=== PATIENT | male | born 1930 | race Caucasian/White ===

== ENCOUNTER → 2017-11-12 | Outpatient (CLI) | payer OTHER ==
[~2017-11-12] MED LIST: CARDIZEM CD240 MG PO; CLONAZEPAM 1 MG1 M1 PO; COUMADIN 4 MG TA4 M1 PO; DEPO-TESTO200 MG/1 M IM; ELIQUIS5 MG PO; FLECAINIDE ACET50 M1 PO; FLOMAX0.4 MG; KEFLEX500 M1 PO; LASIX 20 MG TAB20 MG PO; LIPITOR 20 MG T20 M1 PO; MEDROLDOSEPACK PO; NORCO 5-325 TA1 EACH PO; PACERONE 200 M200 M1 PO; WELLBUTRIN XL150 MG PO
--- NOTE | 2017-11-25 08:18 | PAINCON ---
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 He has noticed worsening of pain and discomfort over the last 2 to 3 years. He has been having pain across his low back area with pain radiating down into his leg. Notes that the pain is worse when he is working. It can be quite intense at times. Notes that when he leans over, there is worsening of pain with pain radiating down into his leg. Pain is improved with rest. He describes this as periodic, aching, can be sharp as well as stabbing. It is a 1 to 2 at this point, can rise to a level of 10 depending on his level of activity. He denies any back surgery. Denies any recent trauma. Denies any change in bowel or bladder function because of this. He would like to be evaluated with the possibility of having an epidural steroid injection. ALLERGIES: No known drug allergies. MEDICATIONS: Current medications are Eliquis 5 mg b.i.d., Lipitor 20 mg daily, Wellbutrin 150 mg b.i.d., clonazepam 1 mg tablets 2 mg daily for anxiety, diltiazem 240 mg, flecainide 50 mg b.i.d., hydrocodone 5/325 q. 4-6 hours p.r.n. pain, Flomax 0.4 mg q. 24 hours. Medications which have been discontinued are Coumadin, Lasix, amiodarone, Depo-Testosterone. 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 PAST SURGICAL HISTORY: Knee replacements 2011 and 2013, intercostal bleeding 2016, skin tumors removed in 1984, 1994, and 2016. 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 Quit smoking in 1979. REVIEW OF SYSTEMS: GENERAL: Good health. Fatigue and weakness, wears glasses, hearing loss, chronic sinus problems, heart trouble, shortness of breath with walking or lying flat, change in bowel movement, constipation, frequent urination, awakens to urinate at night, loss of memory, confusion, depression, insomnia, joint pain, [place] [address] PAIN MANAGEMENT CONSULTATION Name: VIRI PANIAGUA Room: [facility] Deidre#: [id number] Admission: 11/12/17 Attend Phys: Veronique Wills MD Discharge: Date of : 32 Report #: [id number] joint stiffness and swelling, weakness of joints and muscles, muscle pain and cramps, back pain, glandular/hormone. LABORATORY DATA: No laboratory values are available at the time of our interview. PAIN CLINIC ASSESSMENT: 1. The patient states he is not being treated for osteoarthritis or rheumatoid arthritis. 2. Height 5 feet 10 inches, weight 189 pounds, BMI is 27. 3. Vital signs: Blood pressure 119/74, heart rate 85, respiratory rate 16, room air saturation 98%. 4. Pain score today is 1, it can rise up to a level of 10 with activity. 5. Fall risk: The patient has not fallen. 6. The patient is on a blood thinner. He is taking Eliquis for atrial fibrillation. 7. History of hypertension: The patient is not being treated for hypertension. 8. Opioid therapy greater than 6 weeks: The patient is not on opioid medication for greater than 6 weeks. 9. Risks management tool. 10. Functional assessment tool. 11. Recreational drugs: Denies use of recreational drugs. 12. Tobacco: The patient stopped smoking in the . 13. Alcohol: The patient drinks about one glass of wine per day. PHYSICAL EXAMINATION: GENERAL: The patient is a well-developed, well-nourished 86-year-old. He appears his stated age. He is alert and oriented x 3. Affect is appropriate. Speech is fluent. HEENT: He has bilateral hearing devices in place. Eyes nonicteric. Extraocular eye muscles intact. NECK: Without adenopathy. Good range of motion. EXTREMITIES: Upper extremity muscle strength is judged to be 5/5 for the major muscle groups in the upper extremity without significant sensory changes. HEART: History of atrial fibrillation. LUNGS: Clear to auscultation, somewhat decreased in the bases. MUSCULOSKELETAL: Without significant scoliosis, kyphosis or lordosis. The patient has pain and discomfort in the lower back in the L3-L4 paraspinous muscle area as well as pain in the lower area in the buttocks with pain radiating down into his legs and thighs. This is in the posterior thigh area in the L5-S1 dermatomal distribution in his thighs bilaterally. IMPRESSION: 1. Lumbar radiculopathy at L5-S1 distribution on the left and right L5-S1 dermatomal distribution. 2. History of atrial fibrillation. [address] [place] [address] PAIN MANAGEMENT CONSULTATION Name: PANIAGUAVIRI Room: [facility]#: [id number] Admission: 11/12/17 Attend Phys: Veronique Wills MD Discharge: Date of : 32 Report #: [id number] 3. Skin cancer removal, nose and lip. 4. Enlarged prostate. 5. Insomnia. 6. Anxiety. RECOMMENDATIONS: We discussed treatment options with the patient. Risks and benefits of an epidural steroid injection were discussed. A model was used to indicate the area of probable pathology. The patient is having pain and discomfort, which is radiating down the posterior portion of his legs bilaterally. This is consistent with the L5-S1 distribution. He notes that bending and other activities of daily living can significantly increase his pain level. He has not tried a Medrol Dosepak. We will give him a Medrol Dosepak to take in the interim. He will stop his Eliquis. He will return to the Pain Clinic, at which time if he continues to have pain in spite of the Medrol Dosepak, we will consider an epidural steroid injection. Risks and benefits of the procedure were explained to the patient and his . They include but are not limited to infection, increased muscle soreness, headache, bleeding, worsening of pain, numbness or paralysis. The patient has been given a script for hydrocodone 10/325 one p.o. t.i.d. as needed. He has also been given a Medrol Dosepak to take in the interim. We would like to thank you for letting us participate in his care. We hope he continues to improve. <ELECTRONICALLY SIGNED> By: Veronique Wills MD 11/25/1718 [id number]. Calvin Wlils MD /nt
== END ==
LOC: M.PC 11-10 09:40
DX: M54.16 Radiculopathy, lumbar region (principal); I48.91 Unspecified atrial fibrillation; N40.0 Benign prostatic hyperplasia without lower urinary tract symptoms; G47.00 Insomnia, unspecified; F41.9 Anxiety disorder, unspecified

== ENCOUNTER → 2017-12-10 | Outpatient (CLI) | payer OTHER ==
--- NOTE | 2018-01-06 13:42 | PAINCON ---
[facility] [address] [place] [address] PAIN MANAGEMENT CONSULTATION Name: VIRI PANIAGUA [facility] [id number] Admission: 12/10/17 Attend Phys: Veronique Wills MD Discharge: Date of : 32 Report #: [id number] THIS REPORT FOR: //name// CC: Cosme Wills DATE OF SERVICE: 12/10/2017 FOLLOWUP COMPLAINT: Low back pain with pain radiating down into the leg. 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 As you recall, he has some pain and discomfort, which he has noticed worsening over the last 2-3 years. It involves his lower back with pain radiating down into his right leg. Also, involves the left leg. Notes that the pain becomes quite intense at time. Notes that the pain improves with rest. Increases with levels of activity. Describes some aching, sharp and stabbing discomfort. Rates it as a 2-3 at this juncture. Denies any trauma. No problem with bowel or bladder function. The patient was on Eliquis at the last visit. He has stopped taking his Eliquis and has returned to the pain clinic for an injection at this point. As you recall, he has not had back surgery. ALLERGIES: No known drug allergies. MEDICATIONS: Eliquis 5 mg b.i.d., the patient has stopped taking Eliquis. Lipitor 20 mg. daily, Wellbutrin 150 mg, clonazepam 1 mg tab 2 tabs daily for anxiety, diltiazem 240 mg, flecainide 50 mg b.i.d., hydrocodone 5/325 q. 4-6h. p.r.n., Flomax 0.4 mg q. 24 hours. Medications which have been discontinued in the past were Coumadin, Lasix, amiodarone, Depo-Testosterone. PAIN CLINIC ASSESSMENT: 1. Rheumatoid arthritis/osteoarthritis, patient states he has not been treated for rheumatoid arthritis or osteoarthritis. 2. Height 5 feet 10 inches, weight 184 pounds, BMI is 26.8. 3. Vital signs: Blood pressure 125/55, heart rate 65, respiratory rate 16, room air saturation 95%, temperature 97.8. 4. Pain intensity 10/03. 5. Fall risk. The patient has not fallen in the last 3 months. 6. Blood thinner. The patient has stopped taking his blood thinning medication Eliquis in preparation for the epidural steroid injection. 7. History of hypertension. The patient has not been treated for hypertension. 8. Opioid therapy greater than 6 weeks. [place] [address] PAIN MANAGEMENT CONSULTATION Name: VIRI PANIAGUA [facility] [id number] Admission: 12/10/17 Attend Phys: Veronique Wills MD Discharge: Date of : 32 Report #: [id number] therapy. 9. Risk assessment tool. The patient is not at risk for opioid problems. 10. Functional assessment tool. 11. Tobacco: The patient stopped smoking in . 12. Recreational drug use. Denies use of recreational drugs. 13. Alcohol. The patient drinks about one glass of wine per day. PHYSICAL EXAMINATION: GENERAL: The patient is a well-developed white male, appears his stated age of 86. He is appropriate and oriented x 3. His affect is appropriate. Speech is fluent. HEENT: Normocephalic, atraumatic. Extraocular eye muscles in place. The patient has a hearing aids. Eyes are nonicteric. NECK: Without adenopathy. Good range of motion. EXTREMITIES: Upper extremities judged to be 5/5 for the major muscle groups of the upper extremity with symmetry and without sensory changes. HEART: History of atrial fibrillation. LUNGS: Clear to auscultation without rales or rhonchi. MUSCULOSKELETAL: Without significant scoliosis, kyphosis or lordosis. The patient has pain and discomfort radiating down the lower portion of his back in the L3-L4 paraspinous area as well as pain in the lower portion of his back down into the buttocks and pain radiating down into his thighs and the posterior portion in the L5-S1 dermatomal distribution. States it is problematic bilaterally. Positive straight leg raises. IMPRESSION: 1. Lumbar radiculopathy at L5-S1 on the left and right in the appropriate dermatomal distribution. 2. 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 3. Enlarged prostate. 4. Insomnia. 5. Anxiety. RECOMMENDATIONS: We discussed treatment options with the patient. Risks and benefits of the epidural steroid injection were again reviewed. They include infection, increased muscle soreness, headache, bleeding, no improvement, spinal headache. The patient states he understands and would like to proceed. He has returned to the pain clinic for this purpose. PROCEDURE NOTE: The patient was taken to the procedure area. His back was sterilely prepped with a Betadine solution. He was assisted in getting on the fluoroscopy table. His back was positioned appropriately using fluoroscopy in the anterior, posterior as well as lateral positioning with fluoroscopy. His back was sterilely prepped and 0.25% bupivacaine using a midline approach was used. After appropriate placement in the epidural space. A total of 80 mg Depo-Medrol, 40 mg triamcinolone and 2 mL of 0.25% [place] [address] PAIN MANAGEMENT CONSULTATION Name: VIRI PANIAGUA Room: [facility]#: [id number] Admission: 12/10/17 Attend Phys: Veronique Wills MD Discharge: Date of : 32 Report #: [id number] The patient tolerated the procedure well. There were no complications. Fluoroscopy time of 7 seconds was used. A Band-Aid was placed. There was no bleeding. He remained in the pain clinic for an appropriate amount of time. His pain decreased to 0 at the time of discharge. He will follow up in the future as needed. We would like to thank you for letting us participate in his care. We hope he continues to improve. <ELECTRONICALLY SIGNED> By: Veronique Wills MD 01/06/18 1342 [id number]. Calvin Wills MD /NATACHA
== END | disposition home or self-care (01) ==
LOC: M.PC 04:00
DX: M54.16 Radiculopathy, lumbar region (principal); G89.29 Other chronic pain; N40.0 Benign prostatic hyperplasia without lower urinary tract symptoms; G47.00 Insomnia, unspecified; F41.9 Anxiety disorder, unspecified; Z85.828 Personal history of other malignant neoplasm of skin; Z79.01 Long term (current) use of anticoagulants; Z79.899 Other long term (current) drug therapy; Z79.891 Long term (current) use of opiate analgesic; Z87.01 Personal history of pneumonia (recurrent)

== ENCOUNTER → 2018-01-22 | Outpatient (CLI) | payer OTHER | LOC: M.RAD 09:34 | DX: R06.02 Shortness of breath (principal); R06.00 Dyspnea, unspecified ==

== ENCOUNTER → 2018-07-22 | Outpatient (CLI) | payer OTHER | LOC: M.LAB 12:35 | DX: K59.00 Constipation, unspecified (principal) ==

== ENCOUNTER 2018-10-28 15:00 | Emergency (ER) | payer OTHER ==
[~2018-10-28] VITALS: Ht 177.8 cm; Wt 80.7 kg
[2018-10-28 16:10] VITALS: BP 132/53
== END 2018-10-28 16:10 | disposition home or self-care (01) ==
LOC: M.ERS 15:00
DX: S01.511A Laceration without foreign body of lip, initial encounter (principal); I48.91 Unspecified atrial fibrillation; G47.00 Insomnia, unspecified; N40.0 Benign prostatic hyperplasia without lower urinary tract symptoms; Z85.828 Personal history of other malignant neoplasm of skin; Z87.891 Personal history of nicotine dependence; W22.8XXA Striking against or struck by other objects, initial encounter; Y93.89 Activity, other specified; Y92.89 Other specified places as the place of occurrence of the external cause; Y99.8 Other external cause status

== ENCOUNTER → 2018-11-03 | Outpatient (CLI) | payer OTHER ==
--- NOTE | 2018-11-03 13:48 | 2DMMODE ---
[place] [address] 2 D/M-MODE ECHOCARDIOGRAM Name: VIRI PANIAGUA Room: [facility]#: [id number] Admission: 11/03/18 Attend Phys: Tate Powers, Discharge: Date of : 32 Date of Service: 11/03/18 1348 Report #: [id number] THIS REPORT FOR: //name// APPROVED REPORT Study performed: 11/03/2018 11:01:32 EXAM: Comprehensive 2D, Doppler, and color-flow Echocardiogram Patient Location: Out-Patient BSA: 2.04 HR: 60 bpm BP: 140/80 mmHg Other Information Study Quality: Good Indications Aortic Valve Disease 2D Dimensions IVSd: 13.83 (7-11mm) LVOT Diam: 20.78 (18-24mm) LVDd: 43.56 mm PWd: 13.08 (7-11mm) Ascending Ao: 34.38 (22-36mm) LVDs: 24.60 (25-40mm) Aortic Root: 28.37 mm Volumes Left Atrial Volume (Systole) LA ESV Index: 21.90 mL/m2 Aortic Valve AoV Peak Coy.: 1.11 m/s AO Peak Gr.: 4.89 mmHg LVOT Max P.79 mmHg AO Mean Gr.: 2.31 mmHg LVOT Mean P.60 mmHg LVOT Max V: 0.97 m/s AO V2 VTI: 20.59 cm LVOT Mean V: 0.56 m/s GENOVEVA (VTI): 3.49 cm2 LVOT V1 VTI: 21.21 cm AI [place]: 2.43 m/s2 AI PHT: 484.96 ms Mitral Valve E/A Ratio: 0.63 MV Decel. Time: 296.29 ms MV E Max Coy.: 0.58 m/[place] [address] 2 D/M-MODE ECHOCARDIOGRAM Name: VIRI PANIAGUA Room: [facility]#: [id number] Admission: 11/03/18 Attend Phys: Tate Powers, Discharge: Date of : 32 Date of Service: 11/03/18 1348 Report #: [id number] MV PHT: 85.92 ms MVA (PHT): 2.56 cm2 TDI E/Lateral E': 5.80 E/Medial E': 11.60 Medial E' Coy.: 0.05 m/s Lateral E' Coy.: 0.10 m/s Pulmonary Valve PV Peak Coy.: 0.87 m/s PV Peak Gr.: 3.05 mmHg Tricuspid Valve RAP Estimate: 5.00 mmHg TR Peak Gr.: 22.72 mmHg RVSP: 27.72 mmHg PA Pressure: 27.72 mmHg Left Ventricle The left ventricle is normal size. There is normal LV segmental wall motion. Mild concentric left ventricular hypertrophy. Left ventricular systolic function is normal. The left ventricular ejection fraction is within the normal range. LVEF is 55-60%. Grade I - abnormal relaxation pattern. Right Ventricle The right ventricle is normal size. The right ventricular systolic function is normal. Atria The left atrium size is normal. The right atrium size is normal. Aortic Valve Aortic valve is mildly calcified. Mild to moderate aortic regurgitation. There is no aortic valvular stenosis. Mitral Valve The mitral valve is normal in structure. Trace mitral regurgitation. No evidence of mitral valve stenosis. Tricuspid Valve The tricuspid valve is normal in structure. Mild tricuspid regurgitation. Pulmonic Valve The pulmonary valve is normal in structure. Moderate [place] [address] 2 D/M-MODE ECHOCARDIOGRAM Name: VIRI PANIAGUA Room: [facility]#: [id number] Admission: 11/03/18 Attend Phys: Tate Powers, Discharge: Date of : 32 Date of Service: 11/03/18 1348 Report #: [id number] Great Vessels The aortic root is normal in size. IVC is normal in size and collapses >50% with inspiration. Pericardium There is no pericardial effusion. <Conclusion> The left ventricle is normal size. Mild concentric left ventricular hypertrophy. Left ventricular systolic function is normal. The left ventricular ejection fraction is within the normal range. LVEF is 55-60%. Grade I - abnormal relaxation pattern. The right ventricle is normal size. The left atrium size is normal. Aortic valve is mildly calcified. Mild to moderate aortic regurgitation. There is no aortic valvular stenosis. The mitral valve is normal in structure. The tricuspid valve is normal in structure. Mild tricuspid regurgitation. IVC is normal in size and collapses >50% with inspiration. There is no pericardial effusion. There is normal LV segmental wall motion. <ELECTRONICALLY SIGNED> By: Viri Conteh MD, FACC 11/03/18 1348 1348 1348 Viri Conteh MD, FACC /INF
== END ==
LOC: M.CRD 10:56
DX: I08.2 Rheumatic disorders of both aortic and tricuspid valves (principal); I77.810 Thoracic aortic ectasia

== ENCOUNTER → 2018-11-18 | Outpatient (CLI) | payer OTHER ==
[2018-11-18 10:31] LABS: ABSOLUTE EOSINOPHILS 0.1 thou/uL (0.0-0.7); ABSOLUTE LYMPHOCYTES 0.7 thou/uL (0.8-5.3); ABSOLUTE MONOCYTES 0.5 thou/uL (0.0-1.2); ABSOLUTE NEUTROPHILS 3.3 thou/uL (1.6-8.1); BASOPHILS 0.9 %; EOSINOPHILS 2.8 %; HEMATOCRIT 40.3 % (42.0-52.0); HEMOGLOBIN 13.3 gm/dL (14.0-18.0); LYMPHOCYTES 14.2 %; MCH 29.4 pg (26.0-34.0); MONOCYTES 11.1 %; MPV 9.9 fl. (7.2-11.1); NUCLEATED RBCS 0 /100WBC; PLATELET COUNT* 96 thou/uL (150-400); RBC 4.53 mil/uL (4.50-6.00); WBC 4.7 thou/uL (4.0-11.0)
[2018-11-18 10:48] LABS: ALBUMIN 3.1 g/dL (3.4-5.0); ALKALINE PHOSPHATASE 129 U/L (46-116); ANION GAP 9 mmol/L (7-16); BUN 18 mg/dL (7-18); CALCIUM 8.2 mg/dL (8.5-10.1); CHLORIDE 107 mmol/L (98-107); CHOLESTEROL 109 mg/dL (<200); CO2 28 mmol/L (21-32); CREATININE 1.4 mg/dL (0.6-1.3); GLUCOSE 95 mg/dL (70-99); HDL CHOLESTEROL 31 mg/dL (>40); LDL CHOLESTEROL 69 mg/dL (<100); POTASSIUM 4.1 mmol/L (3.5-5.1); SERUM ASSESSMENT Clear; SGOT 27 U/L (15-37); SGPT 19 U/L (30-65); SODIUM 144 mmol/L (136-145); TC:HDL 3.5 Ratio (Not establshd); TOTAL BILIRUBIN 0.8 mg/dL (<0.1-1.0); TOTAL PROTEIN 6.5 g/dL (6.4-8.2); TRIGLYCERIDE 49 mg/dL (<150); VLDL 10 mg/dL (<40)
[2018-11-18 16:09] LABS: TESTOSTERONE 1176 ng/dL (264-916)
== END ==
LOC: M.RAD 08:52
PROVIDERS: Family Medicine
DX: M51.36 Other intervertebral disc degeneration, lumbar region (principal); M51.87 Other intervertebral disc disorders, lumbosacral region; M47.817 Spondylosis without myelopathy or radiculopathy, lumbosacral region; R53.83 Other fatigue; E78.00 Pure hypercholesterolemia, unspecified

== ENCOUNTER → 2019-02-24 | Outpatient (CLI) | payer OTHER ==
--- NOTE | 2019-02-24 13:28 | CARDNUC ---
[place] [address] CARDIAC NUCLEAR IMAGING REPORT Name: VIRI PANIAGUA Room: [facility]#: [id number] Admission: 02/24/19 Attend Phys: Tate Powers, Discharge: Date of : 32 Date of Service: 02/24/19 1328 Report #: [id number] THIS REPORT FOR: //name// APPROVED REPORT Imaging Protocol: Rest Tc-99m/Stress Tc-99m 1 day Study performed: 02/24/2019 09:39:59 Indication: Chest pain, Dyspnea Patient Location: Out-Patient Stress Tech: Nikki Sapp Stress Nurse: Merissa Archer RN NM Tech:MARLYN Samano Ht: 5 ft 10 in Wt: 172 lbs BSA: 1.96 m2 BMI: 24.67 Medical History Medical History: pat, av insuffiency, bilateral carotid stenosis Medications: eliquis, atorvastatin, cartia xl, flecainde Allergies: nkda Cardiac Risk Factors: age, hyperlipidemia, hypertension, pvd, family hx Previous Cardiac Procedures: none Exercise History: Sedentary Resting Data Rest SPECT myocardial perfusion imaging was performed in supine position 30 minutes following the intravenous injection of 10.3 mCi of Tc-99m Sestamibi. Time of rest injection: 824 Date: 02/24/2019 The images were gated to evaluate regional wall motion and calculate left ventricular ejection fraction. Administration Route: IV Pharmacologic Stress Pharmacologic stress test was performed by injecting Regadenoson 0.4 mg IV push over 10-15 seconds immediately followed by the intravenous injection of 32.7 mCi of Tc-99m Sestamibi. Time of stress injection: 949 Date: 02/24/2019 Administration Route: IV Gated Stress SPECT was performed 40 minutes after stress injection. The images were gated to evaluate regional [place] [address] CARDIAC NUCLEAR IMAGING REPORT Name: VIRI PANIAGUA Room: [facility]#: [id number] Admission: 02/24/19 Attend Phys: Tate Powers, Discharge: Date of : 32 Date of Service: 02/24/19 1328 Report #: [id number] left ventricular ejection fraction. Prone imaging was performed. Stress Test Details Stress Test: Pharmacologic stress testing performed using 0.4 mg of regadenoson per 5 mL given IV over 10 seconds. Reason for pharmacologic stress test: LBBB. HR Max Heart Rate (APMHR): 134 bpm Resting HR: 69 bpm Target HR (85% APMHR): 113 bpm Max HR Achieved: 71 bpm % of APMHR: 52 Recovery HR: 72 bpm BP Resting BP: 143/65 mmHg Max BP: 136/55 mmHg Recovery BP: 134/54 mmHg ECG Resting ECG: sinus rhythm, nonspecific IVCD, T-wave abnormalities. Stress ECG: sinus rhythm, nonspecific IVCD ST Change: Non-ischemic Clinical Reason for Termination: Completed protocol Exercise duration: 0 min sec Exercise capacity: 1 METs Study Quality Study: Good Study Data Post stress, the left ventricular ejection was 58%.. SSS: 17 SRS: 25 SDS: 0 TID = 1.02. Perfusion There is a medium area of moderately reduced uptake in the basal and mid segment of the inferolateral wall which is seen on the stress images as well as the resting images. This area is hypokinetic and is most consistent with [place] [address] CARDIAC NUCLEAR IMAGING REPORT Name: VIRI PANIAGUA Room: [facility]#: [id number] Admission: 02/24/19 Attend Phys: Tate Powers, Discharge: Date of : 32 Date of Service: 02/24/19 1328 Report #: [id number] Hypokinesis of the mid to basal inferolateral wall. Nuclear Conclusion ECG Findings: negative for ischemia Clinical Findings: non-diagnostic Nuclear Findings: positive for nontransmural infarct Exercise Capacity: not assessed Left Ventricular Function: normal There is a nontransmural infarct in the mid to basal inferolateral segment. There is normal LV systolic function, with hypokinesis of the basal inferolateral wall. <ELECTRONICALLY SIGNED> By: Glen Abraham MD 02/24/19 1328 Glen Abraham MD /INF
== END ==
LOC: M.NUC 02-16 12:52
DX: I65.23 Occlusion and stenosis of bilateral carotid arteries (principal); I48.0 Paroxysmal atrial fibrillation

== ENCOUNTER 2019-03-01 07:13 | Inpatient (IN) | payer OTHER ==
[~2019-03-01] VITALS: Ht 177.8 cm; Wt 79.0 kg
--- NOTE | ~2019-03-01 | OP ---
[address] [address] OPERATIVE REPORT Name: VIRI PANIAGUA Room: [address] IN M.R.#: [id number] Admission: 03/01/19 Attend Phys: Betito Ochoa MD Discharge: Date of : 32 Report #: [id number] THIS REPORT FOR: //name// CC: Ann-Marie Ochoa PREOPERATIVE DIAGNOSES: Acute cholecystitis and choledocholithiasis, status post ERCP. POSTOPERATIVE DIAGNOSES: Acute cholecystitis and choledocholithiasis, status post ERCP. OPERATIVE PROCEDURE DONE: Laparoscopic cholecystectomy. OPERATING SURGEON: Pedro Lee MD INDICATIONS FOR PROCEDURE: The patient is an 88-year-old male, who presented with severe features of upper abdominal pain and features of sepsis. Ultrasound evaluation showed features of acute cholecystitis and CT scan showed stones within the common bile duct for which the patient underwent ERCP and the stones were removed. The patient was advised laparoscopic cholecystectomy. DESCRIPTION OF PROCEDURE: After explaining to the patient in detail, an informed consent was obtained. The patient was identified in the preoperative holding area. The patient was transferred to the operating room and was placed in supine position. Sequential compressive devices were placed for DVT prophylaxis. Preoperative antibiotics were given. After induction of anesthesia, the abdomen was prepped and draped in a sterile fashion. Through a right upper quadrant 1 cm incision and using Optiview technique, peritoneal cavity was entered and pneumoperitoneum was created. Thereafter, under direct vision, another 5 mm trocar was placed through a supraumbilical incision and another 5 mm trocar was placed in the epigastrium, and one in the right lateral subcostal region. Upon initial inspection, the gallbladder appeared to be very distended. There were a few adhesions noted on the gallbladder, which were gently taken down using sharp and blunt dissection. The gallbladder was retracted and the peritoneal reflections along the neck of the gallbladder were gently dissected off. The cystic duct was identified and was isolated from the surrounding structures. Cystic artery was identified and isolated from the surrounding structures. Cystic duct was then double clipped proximally and single clip applied distally and was then divided. Cystic artery also was then divided in a similar fashion. The gallbladder was gently dissected off the liver bed using hook electrocautery. Absolute hemostasis was achieved. Thorough saline irrigation was given. The gallbladder was retrieved using an EndoCatch through the lateral most incision. Incisions were then closed with 4-0 Monocryl. The lateral incision was closed with 0 Vicryl for the fascia. Skin was closed with 4-0 Monocryl. For all the incisions, [place] [address] OPERATIVE REPORT Name: VIRI PANIAGUA Room: [address] IN M.R.#: [id number] Admission: 03/01/19 Attend Phys: Betito Ochoa MD Discharge: Date of : 32 Report #: [id number]. The patient was stable at the end of the procedure. The patient was awakened from anesthesia and was transferred to the recovery room in stable condition. ESTIMATED BLOOD LOSS: Minimal. CONDITION OF THE PATIENT: Stable. FLUIDS GIVEN: Per Anesthesia notes. SPECIMEN SENT: Gallbladder. COMPLICATIONS: None. ANESTHESIA: General anesthesia. By: [id number] Kaci Lee MD /nt
[~2019-03-01 07:13] MED LIST changes: -FLOMAX0.4 MG; +FLOMAX0.4 MG PO
[2019-03-01 07:22] VITALS: BP 158/67
[2019-03-01] MEDS ORDERED: AMITRIPTYLINE H50 M3 PO (07:29)
[2019-03-01 07:54] LABS: ABSOLUTE LYMPHOCYTES 1.4 thou/uL (0.8-5.3); ABSOLUTE MONOCYTES 0.9 thou/uL (0.0-1.2); ABSOLUTE NEUTROPHILS 5.7 thou/uL (1.6-8.1); BASOPHILS 0.6 %; EOSINOPHILS 0.3 %; HEMATOCRIT 37.4 % (42.0-52.0); HEMOGLOBIN 12.4 gm/dL (14.0-18.0); LYMPHOCYTES 17.2 %; MCH 28.2 pg (26.0-34.0); MCHC 33.1 g/dL (28.0-37.0); MCV 85.3 fL (80.0-100.0); MONOCYTES 11.1 %; MPV 9.7 fl. (7.2-11.1); NUCLEATED RBCS 0 /100WBC; PLATELET COUNT* 149 thou/uL (150-400); POLYS 70.8 %; RBC 4.38 mil/uL (4.50-6.00); RDW-CV 15.1 % (10.5-14.5)
[2019-03-01 07:59] LABS: ANION GAP 9 mmol/L (7-16); APTT 28.9 Seconds (25.0-31.3); BUN 31 mg/dL (7-18); CALCIUM 8.9 mg/dL (8.5-10.1); CHLORIDE 103 mmol/L (98-107); CO2 27 mmol/L (21-32); CREATININE 1.2 mg/dL (0.6-1.3); GLUCOSE 107 mg/dL (70-99); INR 1.2; SODIUM 139 mmol/L (136-145)
[2019-03-01 08:13] LABS: ALKALINE PHOSPHATASE 142 U/L (46-116); CK-MB MASS 2.3 ng/mL (<0.5-3.6); NT-PRO BRAIN NAT PEPTIDE 599 pg/mL (<300); SGOT 50 U/L (15-37); SGPT 25 U/L (30-65); TOTAL BILIRUBIN 0.7 mg/dL (<0.1-1.0); TOTAL PROTEIN 6.8 g/dL (6.4-8.2); TROPONIN-I LEVEL <0.06 ng/mL (<0.06)
--- NOTE | 2019-03-01 10:53 | EKG ---
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
[2019-03-01 12:24] LABS: URINE BILIRUBIN NEGATIVE (Negative); URINE BLOOD TRACE (Negative); URINE CLARITY SL CLOUDY; URINE COLOR YELLOW; URINE GLUCOSE-RANDOM NEGATIVE (Negative); URINE KETONES TRACE (Negative); URINE LEUKOCYTES-REFLEX 1+ (Negative); URINE NITRITE-REFLEX NEGATIVE (Negative); URINE PROTEIN 1+ (Negative); URINE SPECIFIC GRAVITY 1.015 (1.005-1.030)
[2019-03-01 12:36] LABS: SQUAMOUS 0-3 Few /LPF (0-3); URINE RBC 0-2 Rare /HPF (0-2)
[2019-03-01 12:37] LABS: MUCUS 0-3 Light strn/LPF (None Seen)
[2019-03-01 12:38] LABS: AMORPHOUS PHOSPHATES Moderate /LPF (None Seen); FINE GRANULAR CASTS 0-3 Few /LPF (None Seen)
[2019-03-01 15:35] VITALS: BP 149/58
[2019-03-01 16:00] VITALS: BP 179/70
--- NOTE | 2019-03-01 17:23 | NUR ---
ASSESSMENT COMPLETE. PT SLEEPING SINCE ADMISSION TO UNIT FROM ER. PT GIVEN ATIVAN AND GEODON IN ER. SITER AT BEDSIDE. PIERCE PLACED UPON ADMISSION TO FLOOR. NEURO/GI/SURGERY CONSULTS. PT IS NPO EXCEPT MEDICATIONS. IV FLUIDS INFUSING. BED ALARM ON. CITICAL I&0. PT IS ON ROOM AIR WITH [place] SATS. NSR ON TELE MONITOR, VSS. Q2 TURN. SEE ASSESSMENT AND VITALS FOR OTHER DETAILS. CALL LIGHT WITHIN REACH, WILL CONTINUE PLAN OF CARE.
[2019-03-01 20:00] VITALS: BP 108/69
[2019-03-02] VITALS (9 sets, daily range): BP systolic 108–167; BP diastolic 52–74
--- NOTE | 2019-03-02 05:15 | NUR ---
ASSUMED CARE OF PT AFTER REPORT AT 1930. PT CONFUSED & IMPULSIVE AT TIMES. PT ON RA. PT TRACING SR BBB ON TELE. PT TRIED TO HURT , PULLED OUT IV AND TRYING TO CLIMB OUT OF BED. DR GOMEZ MADE AWARE WITH NEW ORDER. PT WITH 1:1 SITTER. PT WITH PIERCE TO DEPENDENT DRAIN. MAINTAINED ON NPO ORDERED. FOR ERCP TODAY. CALL LIGHT WITHIN REACH.
[2019-03-02 05:31] LABS: HEMATOCRIT 36.7 % (42.0-52.0); MCH 28.1 pg (26.0-34.0); MCHC 32.7 g/dL (28.0-37.0); MCV 86.2 fL (80.0-100.0); MPV 10.2 fl. (7.2-11.1); RBC 4.26 mil/uL (4.50-6.00); RDW-CV 15.2 % (10.5-14.5)
[2019-03-02 05:48] LABS: ALBUMIN 2.6 g/dL (3.4-5.0); CALCIUM 8.1 mg/dL (8.5-10.1); MAGNESIUM 2.2 mg/dL (1.8-2.4); POTASSIUM 3.8 mmol/L (3.5-5.1); TOTAL BILIRUBIN 0.7 mg/dL (<0.1-1.0)
--- NOTE | 2019-03-02 09:28 | NUR ---
ASSUMED CARE OF PT THIS AM AROUND 0715- WATER TAXI CAPTAIN IN PLACE ORDERED, TRACING SR/BBB- UPON ASSESSMENT PT NOTED TO BE BE IN BED SLEEPING, AT SIDE, ALONG WITH SITTER FOR SAFEY/IMPULSIVENESS- PT A&O X1- CONTINENT OF BOWEL, PIERCE IN PLACE D/D CLEAR YELLOW URINE- ASSIST X1 WITH TRANSFERS FOR SAFETY- LCTA, RESP EVEN AND UN-LABORED- VSS, O2 SAT 93% ON RA- ABD SOFT/FL;AT/NON-TENDER, BS X4 QUADS- LAST BM REPORTED 03/01/19- IV NOTED TO RIGHT AC INTACT, IVF INFUSSING PRESCIBED- NPO AT THIS TIME FOR PLANNED ERCP THIS SHIFT- ALL NEEDS MET AT THIS TIME-WCTM
--- NOTE | 2019-03-02 10:14 | NUR ---
Spoke with and dtr in room. Pt is normally A&O. Independent, started using a walker for mobility within the past week. Per , Pt has been "stumbling" at home. No hx of HH or SNF. Pt's [employer] nurse comes out and checks on him. Per , goal is home at dc, no needs anticipated. Following.
--- NOTE | 2019-03-02 12:49 | NUR ---
Nutrition: Pt admitted with AMS/UTI. NPO for procedure. Pt has sitter. Pt was very confused/AMS. He stated he didn't even know where he was right now. Apparently, his stated he has lost 22# recently. Current wt: 160#. Albumin 2.6. H/o afib, BPH. Has gallstones. No nutrition interventions at this time. Pt may benefit from an oral supplement once diet advances. Mild risk. RD will follow wt trends, diet order, po intake, labs, 03/07/19.
--- NOTE | 2019-03-02 19:00 | NUR ---
PT OFF UNIT FROM AROUND 1300 THIS SHIFT TILL AROUND 1830 FOR ERCP- REPORT RECEIVIED AT BEDSIDE UPON RETURNING FROM ERNIE VER[facility]- PT REPORTED TO HAVE HAD 2 STONSE REMOVED- CLEAR LIQUIDS OKAY TO START- HEPARIN ORIGINALLY STARTED PRIOR TO ERCP THIS SHIFT PER ORDERS, BUT HAD NOW BEEN PUT ON HOLD X 48 HOURS- NEURO UNABLE TO SEE PT THIS SHIFT R/T BEING OFF FLOOR FOR ERCP, WILL ASSESS FURTHER GANESH, LABS NOTED- VS UPON RETURNING NOTED AT AT 97.5 21 150/52 69 93% ON RA- PT DENIES ANY C/O PAIN- REQUESTING FOOD, WITH CLEAR LIQUIDS PROVIDED INDICATED- FAMILY SEVEROY AT SIDE- BED ALARM IN PLACE AND WORKING FOR PT SAFETY- ALL NEEDS MET AT THIS TIME-WCTM
[2019-03-03 04:00] VITALS: BP 160/64
[2019-03-03 04:37] LABS: HEMATOCRIT 39.4 % (42.0-52.0); HEMOGLOBIN 12.6 gm/dL (14.0-18.0); MCH 27.6 pg (26.0-34.0); MCHC 32.1 g/dL (28.0-37.0); MPV 9.9 fl. (7.2-11.1); RBC 4.58 mil/uL (4.50-6.00); RDW-CV 15.5 % (10.5-14.5); WBC 8.9 thou/uL (4.0-11.0)
[2019-03-03 04:48] LABS: ALBUMIN 2.4 g/dL (3.4-5.0); CALCIUM 8.2 mg/dL (8.5-10.1); MAGNESIUM 2.5 mg/dL (1.8-2.4); POTASSIUM 4.3 mmol/L (3.5-5.1); TOTAL BILIRUBIN 1.2 mg/dL (<0.1-1.0); TOTAL PROTEIN 6.2 g/dL (6.4-8.2)
--- NOTE | 2019-03-03 06:11 | NUR ---
ASSUMED PATIENT CARE AT 1900. PATIENT ALERT AND ORIENTED TIMES 2-3. HAS NOT NEEDED A SITTER ALL NIGHT. LIKES TO BE UP IN THE CHAIR AT BEDSIDE.
[2019-03-03 08:19] VITALS: BP 170/88
[2019-03-03 11:51] VITALS: BP 147/58
--- NOTE | 2019-03-03 15:48 | CON ---
[address] [address] CONSULTATION Name: VIRI PANIAGUA Room: [address] IN M.R.#: [id number] Admission: 03/01/19 Attend Phys: Betito Ochoa MD Discharge: Date of : 32 Report #: [id number] THIS REPORT FOR: //name// CC: Ann-Marie Ochoa DICTATED BY: Goldie Felix [facility] DATE OF SERVICE: 03/02/2019 Please note, at the time of this dictation, the patient was seen and physically examined by myself. REASON FOR CONSULTATION: Dilated CBD. HISTORY OF PRESENT ILLNESS: This is an 88-year-old male who presented to the Emergency Room with altered mental status changes that he was very combative and hallucinogenic towards his . He was found to have a UTI as well. She has noted that, in the last few months, he has lost about 22 pounds and he was complaining off and on some upper abdominal discomfort. He had a little bit of nausea and occasional vomiting over the last several weeks. She also reports that he has been tiring easily and feeling weak during most of this time. The patient had a colonoscopy back in [address] Ulloa that showed polyps, both tubular adenoma and hyperplastic, and diverticulosis. Otherwise, the rest of his colon was normal. ALLERGIES: No known drug allergies. MEDICATIONS: From home, Wellbutrin, Flomax, flecainide, Cardizem, amitriptyline, and atorvastatin. PAST MEDICAL HISTORY: Atrial fibrillation, skin cancer, pelvic and rib fractures, BPH. PAST SURGICAL HISTORY: Skin cancer excision, otherwise negative. FAMILY HISTORY: Negative for any GI or female cancers. SOCIAL HISTORY: Former smoker, drinks a glass of wine a day. Denies any illegal drug use and is and lives with his . REVIEW OF SYSTEMS: Twelve-point review of systems is essentially negative except what is mentioned in the HPI. PHYSICAL EXAMINATION: [place] [address] CONSULTATION Name: VIRI PANIAGUA Room: [address] IN .R.#: [id number] Admission: 03/01/19 Attend Phys: Betito Ochoa MD Discharge: Date of : 32 Report #: [id number] VITAL SIGNS: Temperature 36.4, pulse 81, respirations 18, blood pressure 141/80. HEART: Regular rate and rhythm. LUNGS: Diminished, but clear. ABDOMEN: Soft, positive bowel sounds in all 4 quadrants, with some slight epigastric to right upper quadrant tenderness noted to palpation. LABORATORY DATA: Hemoglobin is 12, white count is 7, platelets 129. BUN is 22. GFR is 71. Total bilirubin 0.7, alkaline phosphatase 125, ALT 24, AST is 89. CT of the abdomen and pelvis showed a dilated CBD, ultrasound 1.5 cm with sludge and stones noted and an enlarged gallbladder, also noted a UTI. PT is 12, INR is 1.2. IMPRESSION: 1. Common bile duct dilatation. 2. Choledocholithiasis. 3. Abdominal pain. 4. Splenomegaly. 5. Thrombocytopenia. 6. Delirium. 7. Urinary tract infection. 8. History of atrial fibrillation. PLAN: 1. ERCP today with Dr. Chen. 2. Further recommendations to be made once the procedure has been performed. Thank you for allowing us to participate in this patient's care. Please do not hesitate to call with any questions in regard to this consult. Patient noted to have bile duct stones on CT. Will proceed with ERCP and extraction. I agree with assessment and plan noted above by Goldie Felix. <ELECTRONICALLY SIGNED> By: Dread Chen MD 03/03/19 1548 1116 0030Dread Chen MD /nt
[2019-03-03 16:06] VITALS: BP 130/60
--- NOTE | 2019-03-03 16:09 | NUR ---
PT CURRENTLY UP IN BED SIDE RECLINER, AT SIDE- SERVICE ATTENDANT CAFETERIA IN PLACE ORDERED, TRACING SR/BBB/1ST DEGREE- IV TO LEFT FA INTACT, IVF INFUSSING PRESCIBED- IV ABT PRESCIBED THIS SHIFT- ABD CT COMPLETED THIS SHIFT PRESCIBED WITH RESULTS NOTED IN [facility]- PIERCE D/C'D THIS SHIFT ORDERED, PT ABLE TO URINATE SELF WITH NO ISSUES THIS SHIFT- SURGERY PLANNED FOR SAT 03/05/19, PT TO BE NPO AT MIDNIGHT 03/04/19- PT DENIES AND C/O PAIN/DISCOMFORT AT THIS TIME- CALL LIGHT AND PERSONAL BELONGINGS WITH IN REACH- FREQUENT CHECKS IN PLACE R/T SAFETY/NEEDS- ALL NEEDS MET AT THIS TIME-WCTM
[2019-03-03 20:00] VITALS: BP 149/59
[2019-03-04] VITALS: BP 151/89
[2019-03-04 04:00] VITALS: BP 152/55
[2019-03-04 04:53] LABS: HEMATOCRIT 35.8 % (42.0-52.0); HEMOGLOBIN 11.7 gm/dL (14.0-18.0); MCH 28.1 pg (26.0-34.0); MCHC 32.6 g/dL (28.0-37.0); MCV 86.2 fL (80.0-100.0); MPV 9.7 fl. (7.2-11.1); RBC 4.15 mil/uL (4.50-6.00); RDW-CV 15.4 % (10.5-14.5); WBC 6.6 thou/uL (4.0-11.0)
[2019-03-04 04:57] LABS: ALBUMIN 2.5 g/dL (3.4-5.0); CALCIUM 8.1 mg/dL (8.5-10.1); POTASSIUM 3.9 mmol/L (3.5-5.1); TOTAL BILIRUBIN 0.6 mg/dL (<0.1-1.0); TOTAL PROTEIN 5.8 g/dL (6.4-8.2)
--- NOTE | 2019-03-04 05:07 | NUR ---
ASSUMED CARE OF PT AFTE REPOR AT 1930. PT A&OX4. FORGETFUL AT TIMES. VSS. PHYSICAL ASSESSMENT COMPLETED AND CHARED. PT ON RA. PT TRACING SR/BBB ON TELE. PT UP STANDBY TO RESTROOM. PT DENIES ANY PAIN OR DISCOMFORT. PT ABLE TO SLEEP WELL ON BED. CALL LIGHT WITHIN REACH.
[2019-03-04 08:00] VITALS: BP 146/85
--- NOTE | 2019-03-04 11:43 | NUR ---
FIELD SERVICE POULTRY TECHNICIAN SPOKE TO THE PATIENT AND SPOUSE TO DISCUSS DISCHARGE PLANNING AND HH AT D/C. BOTH PATIENT AND SPOUSE INFORM THAT THEY ARE NOT INTERESTED IN HH AT D/C. 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 D/C PRECONSTRUCTION MANAGER INFORMED BOTH PATIENT AND SPOUSE THAT IF THEY CHANGED THEIR MINDS ABOUT HH PRIOR TO D/C THAT CM WOULD BE AVAILABLE TO ASSIST TO ARRANGE IT. PLAN IS FOR THE PATIENT TO D/C HOME TOMORROW. CM WILL REMAIN AVAILABLE TO ASSIST AND FOLLOW NEEDED.
[2019-03-04 15:29] VITALS: BP 108/66
--- NOTE | 2019-03-04 16:45 | NUR ---
ASSUSSMED CARE OF PT APPROX 0730. ASSESSMENT COMPLETED CHARTED. MEDICATIONS GIVEN CHARTED. PT FAMILY AT BEDSIDE. PT AMBULATED IN HALLWAY. PT EDUCATION GIVEN ABOUT MEDICATION. PT VERBALIZED UNDERSTANDING.
--- NOTE | 2019-03-04 17:00 | NUR ---
ASSUMED CARE OF PT AT THIS TIME. AGREE WITH PREVIOUS RN'S DOCUMENTATION. WILL CONTINUE TO MONITOR.
--- NOTE | 2019-03-04 17:00 | NUR ---
I HAVE REVIEWED AND AGREE WTIH THE CHARTING OF ELIDIA Beltran RN ON 03/04/19
[2019-03-04 20:00] VITALS: BP 168/75
[2019-03-05] VITALS (8 sets, daily range): BP systolic 136–170; BP diastolic 55–74
--- NOTE | 2019-03-05 04:41 | NUR ---
ASSUMED CARE OF PT AFTER REPORT AT 1930. PT A&OX4. FORGETFUL. VSS. PHYSICAL ASSESSMENT COMPLETED AND CHARTED. PT ON RA. PT TRACING SR/BBB/1ST DEG ON TELE. PT UPSTANDBY TO RESTROOM. INSTRUCTED PT ON NPO POST MIDNIGHT FOR SURGERY TODAY. COMMUNICATES UNDERSTANDING. DENIES ANY PAIN OR DISCOMFORT. CALL LIGHT WITHIN REACH.
--- NOTE | 2019-03-05 18:21 | NUR ---
ASSUSSMED CARE OF PT APPROX 0730.ASSESSMENT COMPLETED CHARTED. MEDICATIONS GIVEN CHARTED. FAMILY AT BEDSIDE. PT OFF UNIT FOR PROCEDURE APPROX 1000. PT RETURNED TO UNIT APPROX 1320. REPORT RECIEVED FROM NURSE. PTS DIET ADVANCED TOLERATED. PTS IV INFILTRATED. IV DCED AND NEW IV PLACED. PT NEEDS MET.
--- NOTE | 2019-03-05 18:37 | NUR ---
I HAVE REVIEWED AND AGREE WITH THE ASSESMENT,CHARTING AND NOTE OF ELIDIA Beltran RN ON 03/05/19
[2019-03-06] VITALS: BP 170/67
[2019-03-06 04:00] VITALS: BP 118/48
[2019-03-06 04:41] LABS: HEMATOCRIT 36.3 % (42.0-52.0); HEMOGLOBIN 11.9 gm/dL (14.0-18.0); MCH 28.3 pg (26.0-34.0); MCHC 32.9 g/dL (28.0-37.0); MPV 9.8 fl. (7.2-11.1); RBC 4.22 mil/uL (4.50-6.00); RDW-CV 15.7 % (10.5-14.5)
[2019-03-06 04:51] LABS: ALBUMIN 2.4 g/dL (3.4-5.0); CALCIUM 8.3 mg/dL (8.5-10.1); CREATININE 1.1 mg/dL (0.6-1.3); MAGNESIUM 2.1 mg/dL (1.8-2.4); POTASSIUM 4.4 mmol/L (3.5-5.1); TOTAL BILIRUBIN 0.5 mg/dL (<0.1-1.0)
--- NOTE | 2019-03-06 04:56 | NUR ---
ASSUMED CREA OF PT AFTER REPORT AT 1930. PT A7OX4. FORGETFUL. VSS. PHYSICAL ASSESSMENT COMPLETED AND CHARTED. PT ON RA. PT TRACING SR/BBB/1ST DEG ON TELE. PT UPSTANDBY TO RESTROOM. PT DENIES ANY PAIN OR DISCOMFORT. PT ABLE TO SLEEP WELL ON BED. CALL LIGHT WITHIN REACH.
[2019-03-06 08:00] VITALS: BP 169/76
[2019-03-06] MEDS ORDERED: SYNTHROID50 MCG PO (08:19)
[2019-03-06] MEDS ORDERED: ONDANSETRON HCL4 M2 PO (08:19)
[2019-03-06] MEDS ORDERED: AMOX TR-K CLV1 EAC3 PO (08:19)
[2019-03-06] MEDS ORDERED: PROBIOTIC1 EAC1 PO (08:19)
[2019-03-06 10:01] VITALS: BP 169/76
--- NOTE | 2019-03-06 11:29 | NUR ---
ASSUMED PT CARE REPORT RECEIVED FROM NURSE. PT IS AOX3 FORGETFUL ABOUT THE DATE. ON RA. UP TO CHAIR. READY TO GO HOME. DISCHARGE ORDERED. DISCHARGE INSTRUCTION GIVEN TO PT WHO STATED UNDERSTANDING. PT LEFT FLOOR AT 1030 AM ACCOMPANIED BY AND NURSING STAFF ON WHEELCHAIR.
--- NOTE | 2019-03-09 16:06 | PATH ---
[address] [address] PATHOLOGY RPT PROCEDURE Name: VIRI PANIAGUA Room: [address] IN M.R.#: [id number] Admission: 03/01/19 Date of : 32 Discharge: 03/06/19 Report #: [id number] Path Case #: [id number] LCA Accession Number: [id number] . 01 Material submitted: . gallbladder - GALLBLADDER . 01 Clinical history: . Acute cholecystitis . 02 Diagnosis: Gallbladder: - Chronic and acute cholecystitis and cholelithiasis. (EMIL:randy; 03/08/2019) MBR/03/08/2019 . 02 Electronically signed: . Joel Bustamante MD, Pathologist NPI- [id number] . 01 Gross description: . The specimen is received in formalin, labeled "Viri Paniagua, gallbladder". Received is an intact gallbladder measuring 8.8 x 4.3 x 3.2 cm in greatest dimensions displaying a hay-hendrix to pink-hay serosal surface. Opening the specimen reveals a velvety, bile-stained mucosa with a gallbladder wall thickness of 0.1 cm. Calculi are not present, and no masses or lesions are noted grossly. Raschel Knitting Machine Operator sections, to include the proximal margin, are submitted in cassette A1. (CAA; 03/07/2019) QAC/QAC . 02 Pathologist provided ICD-10: K80.12 . 02 CPT . 644664 Specimen Comment: A courtesy copy of this report has been sent to Specimen Comment: [phone], . Specimen Comment: Report sent to / DR ASHRAF Performed at: [id number] [facility] [address], [place], [place] [id number] MD Biju Bourne MD Phone: [phone] Performed at: 02 [facility] [address], [place], [place] [id number] MD Joel Bustamante MD Phone: [phone]
== END 2019-03-06 10:42 | disposition home or self-care (01) | DRG 417 ==
LOC: M.ERS 07:13 → M.2W 11:26 → M.TBA-ER 11:26 → M.2W 16:01
PROVIDERS: Family Medicine; Surgery; ADMIT Internal Medicine
PROC: 0FC98ZZ Extirpation of Matter from Common Bile Duct, Via Natural or Artificial Opening Endoscopic (ICD-10-PCS; principal; 2019-03-02)
PROC: 0FT44ZZ Resection of Gallbladder, Percutaneous Endoscopic Approach (ICD-10-PCS; 2019-03-05)
DX: K80.63 Calculus of gallbladder and bile duct with acute cholecystitis with obstruction (principal); G92 Toxic encephalopathy; N39.0 Urinary tract infection, site not specified; I48.91 Unspecified atrial fibrillation; G47.00 Insomnia, unspecified; R63.4 Abnormal weight loss; R16.1 Splenomegaly, not elsewhere classified; B95.2 Enterococcus as the cause of diseases classified elsewhere; F03.90 Unspecified dementia, unspecified severity, without behavioral disturbance, psychotic disturbance, mood disturbance, and anxiety; N40.1 Benign prostatic hyperplasia with lower urinary tract symptoms; F41.9 Anxiety disorder, unspecified; F32.9 Major depressive disorder, single episode, unspecified; R33.8 Other retention of urine; E03.9 Hypothyroidism, unspecified; R59.0 Localized enlarged lymph nodes; D69.6 Thrombocytopenia, unspecified; R63.0 Anorexia; Z68.25 Body mass index [BMI] 25.0-25.9, adult; Z85.828 Personal history of other malignant neoplasm of skin; Z87.891 Personal history of nicotine dependence; Z79.899 Other long term (current) drug therapy

== ENCOUNTER → 2019-03-17 | Outpatient (CLI) | payer OTHER ==
[~2019-03-17] MED LIST changes: +AMITRIPTYLINE H50 M3 PO; +AMOX TR-K CLV1 EAC3 PO; +ONDANSETRON HCL4 M2 PO; +PROBIOTIC1 EAC1 PO; +SYNTHROID50 MCG PO
[2019-03-17 08:48] LABS: ABSOLUTE BASOPHILS 0.1 thou/uL (0.0-0.2); ABSOLUTE EOSINOPHILS 0.2 thou/uL (0.0-0.7); ABSOLUTE MONOCYTES 0.7 thou/uL (0.0-1.2); ABSOLUTE NEUTROPHILS 5.2 thou/uL (1.6-8.1); BASOPHILS 0.9 %; EOSINOPHILS 2.2 %; HEMATOCRIT 38.5 % (42.0-52.0); HEMOGLOBIN 12.3 gm/dL (14.0-18.0); LYMPHOCYTES 24.5 %; MCH 28.5 pg (26.0-34.0); MCV 89.3 fL (80.0-100.0); MONOCYTES 8.4 %; MPV 9.5 fl. (7.2-11.1); NUCLEATED RBCS 0 /100WBC; PLATELET COUNT* 103 thou/uL (150-400); RBC 4.32 mil/uL (4.50-6.00); WBC 8.1 thou/uL (4.0-11.0)
== END ==
LOC: M.LAB 08:23
PROVIDERS: Family Medicine
DX: D73.9 Disease of spleen, unspecified (principal)

== ENCOUNTER → 2019-03-23 | Day surgery (SDC) | payer OTHER ==
--- NOTE | ~2019-03-23 | OP ---
[address] [address] OPERATIVE REPORT Name: PANIAGUAVIRI Whitaker Room: [facility]#: [id number] Admission: 03/23/19 Attend Phys: Pedro Lee MD Discharge: Date of : 32 Report #: [id number] THIS REPORT FOR: //name// CC: DARRIN Lee MD DICTATED BY: Mitch Pearson DO DATE OF SERVICE: 03/23/2019 Mitch Pearson DO, PGY-3, dictating operative on behalf of Dr. Pedro Lee. PREOPERATIVE DIAGNOSIS: Incisional hernia. POSTOPERATIVE DIAGNOSIS: Incisional hernia. PROCEDURE PERFORMED: Primary repair of an incisional hernia. SURGEON: Pedro Lee MD DIRECTOR OF CUSTOMER ACQUISITION: Mitch Pearson DO, PGY-3 ANESTHESIA: General and local. FINDINGS: A small fat containing incisional hernia of the right lateral previous cholecystectomy port site. ESTIMATED BLOOD LOSS: 2. COMPLICATIONS: None. SPECIMENTS: None. HISTORY OF PRESENT ILLNESS: The patient is a pleasant 88-year-old male who recently underwent laparoscopic cholecystectomy in last couple of weeks, presented for followup exam and was found to have an incisional hernia at his lateral port site. Discussed the need for hernia repair. Risks, complications, and benefits were discussed at length and he agreed to proceed with surgery. DESCRIPTION OF PROCEDURE: After consent was obtained, the patient was taken to the operating room and placed in the supine position. SCDs applied to bilateral lower extremities, safety belt placed across the patient's waist, antibiotics were given for surgical prophylaxis. General anesthesia was administered without any complication. The patient was intubated and then prepped [place] [address] OPERATIVE REPORT Name: VIRI PANIAGUA Room: [facility].#: [id number] Admission: 03/23/19 Attend Phys: Pedro Lee MD Discharge: Date of : 32 Report #: [id number] in the standard sterile fashion. Timeout was performed to confirm the patient and procedure. A 15 blade scalpel was used to make an incision over the previous right lateral port site. Electrocautery was used for hemostasis and to dissect down to the level of the hernia defect. Once the hernia defect was encountered, it was pushed back into the abdomen. There was no developed hernia sac at this time. It was decided to proceed with primary repair of the hernia defect, #1 Prolene was used to close the fascial defect in a running fashion. Once the fascial defect was closed, one stitch of 3-0 Vicryl was used to close the subcutaneous tissue, 4-0 Monocryl was used to close the skin. Dermabond was applied to the incision. The patient was awoken from general anesthesia and transferred to PACU in stable condition. All counts were correct at the end of the case. By: [id number] [id number] marissa Daily
== END | disposition home or self-care (01) ==
LOC: M.SUR 06:22
DX: K43.2 Incisional hernia without obstruction or gangrene (principal); Z87.01 Personal history of pneumonia (recurrent); Z79.899 Other long term (current) drug therapy; Z98.890 Other specified postprocedural states; Z87.19 Personal history of other diseases of the digestive system

== ENCOUNTER 2019-05-11 00:29 | Emergency (ER) | payer OTHER ==
[~2019-05-11] VITALS: Ht 182.9 cm; Wt 83.9 kg
[2019-05-11 01:09] LABS: MCH 30.1 pg (26.0-34.0); MCHC 33.2 g/dL (28.0-37.0); MCV 90.8 fL (80.0-100.0); MPV 8.7 fl. (7.2-11.1); NUCLEATED RBCS 0 /100WBC; PLATELET COUNT* 66 thou/uL (150-400); RBC 3.64 mil/uL (4.50-6.00); RDW-CV 18.2 % (10.5-14.5); WBC 3.3 thou/uL (4.0-11.0)
[2019-05-11 01:18] LABS: INR 1.2; PROTIME 11.9 Seconds (9.20-11.50)
[2019-05-11 01:26] LABS: CALCIUM 8.3 mg/dL (8.5-10.1); CREATININE 1.4 mg/dL (0.6-1.3)
[2019-05-11 01:36] LABS: ALBUMIN 2.3 g/dL (3.4-5.0); TOTAL BILIRUBIN 0.4 mg/dL (<0.1-1.0); TOTAL PROTEIN 4.8 g/dL (6.4-8.2)
[2019-05-11 02:58] LABS: URINE BILIRUBIN NEGATIVE (Negative); URINE BLOOD TRACE (Negative); URINE CLARITY CLEAR; URINE COLOR YELLOW; URINE GLUCOSE-RANDOM NEGATIVE (Negative); URINE KETONES NEGATIVE (Negative); URINE LEUKOCYTES-REFLEX NEGATIVE (Negative); URINE NITRITE-REFLEX NEGATIVE (Negative); URINE PROTEIN NEGATIVE (Negative); URINE SPECIFIC GRAVITY 1.015 (1.005-1.030)
[2019-05-11 03:27] LABS: ABSOLUTE LYMPHOCYTES 0.1 thou/uL (0.8-5.3); ABSOLUTE MONOCYTES 0.2 thou/uL (0.0-1.2); PLATELET ESTIMATE DECREASED
[2019-05-11 03:28] LABS: ANISOCYTOSIS 1+
[2019-05-11 03:50] VITALS: BP 150/54
--- NOTE | 2019-05-11 11:30 | EKG ---
[place] [address] ELECTROCARDIOGRAM REPORT Name: SIVAVIRI Sherman Room[facility] [id number] Admission: 05/11/19 Attend Phys: Discharge: 05/11/19 Date of : 32 Report #: [id number] THIS REPORT FOR: //name// [facility] ED Test Date: 2019-05-11 Test Time: 00:48:38 Pat Name: VIRI PANIAGUA Department: Room: Gender: M People Greeter: JAMES : 1930 Requested By: Stella Pederson Order Number: [id number] MD: Mikhail Hyatt Measurements Intervals [place] Rate: 87 P: 3 KS: 152 QRS: -56 QRSD: 113 T: 30 QT: 360 QTc: 433 Interpretive Statements Sinus rhythm left anterior fasicular block Compared to ECG 03/01/2019 07:44:51 No significant changes Electronically Signed On 05-11-2019 11:30:10 CDT by Mikhail Hyatt [email or web address] <ELECTRONICALLY SIGNED> By: Mikhail Hyatt MD, [facility] 05/11/19 1130 0048 0048 Mikhail Hyatt MD, FACC /EPI
== END 2019-05-11 03:50 | disposition short-term general hospital (02) ==
LOC: M.ERS 00:29
PROVIDERS: Emergency Medicine
DX: S06.5X0A Traumatic subdural hemorrhage without loss of consciousness, initial encounter (principal); R41.82 Altered mental status, unspecified; I48.91 Unspecified atrial fibrillation; Z85.828 Personal history of other malignant neoplasm of skin; Z87.891 Personal history of nicotine dependence; X58.XXXA Exposure to other specified factors, initial encounter; Y93.89 Activity, other specified; Y92.89 Other specified places as the place of occurrence of the external cause; Y99.8 Other external cause status

== ENCOUNTER 2019-12-05 07:05 | Inpatient (IN) | payer OTHER ==
[~2019-12-05] VITALS: Ht 188 cm; Wt 73.5 kg
[~2019-12-05 07:05] MED LIST changes: -AMITRIPTYLINE H50 M3 PO; +AMITRIPTYLINE100 MG PO; -FLECAINIDE ACET50 M1 PO; +TAMBOCOR 100 M100 M1 PO
[2019-12-05 07:10] VITALS: BP 152/63
[2019-12-05] MEDS ORDERED: FLECAINIDE ACE150 MG PO (07:27)
[2019-12-05 07:41] LABS: ABSOLUTE EOSINOPHILS 0.1 thou/uL (0.0-0.7); ABSOLUTE LYMPHOCYTES 0.5 thou/uL (0.8-5.3); ABSOLUTE MONOCYTES 0.7 thou/uL (0.0-1.2); BASOPHILS 0.4 %; HEMATOCRIT 36.9 % (42.0-52.0); LYMPHOCYTES 6.4 %; MCH 28.8 pg (26.0-34.0); MCHC 32.6 g/dL (28.0-37.0); MCV 88.4 fL (80.0-100.0); MONOCYTES 9.2 %; MPV 9.7 fl. (7.2-11.1); NUCLEATED RBCS 0 /100WBC; PLATELET COUNT* 149 thou/uL (150-400); RBC 4.18 mil/uL (4.50-6.00); RDW-CV 16.6 % (10.5-14.5); WBC 7.3 thou/uL (4.0-11.0)
[2019-12-05 07:56] LABS: CALCIUM 8.2 mg/dL (8.5-10.1); CREATININE 1.1 mg/dL (0.6-1.3); POTASSIUM 4.1 mmol/L (3.5-5.1)
[2019-12-05 08:00] LABS: ALBUMIN 3.2 g/dL (3.4-5.0); TOTAL BILIRUBIN 0.5 mg/dL (<0.1-1.0); TOTAL PROTEIN 5.7 g/dL (6.4-8.2)
--- NOTE | 2019-12-05 08:39 | NUR ---
LLOYD NOTIFIED UPON PT RETURN FROM CT. XRAY WITH PT IN ROOM AND WILL CONNECT TO MONITOR UPON THE COMPLETION OF PORTABLE XRAY
[2019-12-05 09:07] LABS: URINE BILIRUBIN NEGATIVE (Negative); URINE BLOOD TRACE (Negative); URINE CLARITY CLEAR; URINE COLOR YELLOW; URINE GLUCOSE-RANDOM NEGATIVE (Negative); URINE KETONES NEGATIVE (Negative); URINE PROTEIN TRACE (Negative); URINE SPECIFIC GRAVITY 1.015 (1.005-1.030)
[2019-12-05 09:09] LABS: URINE LEUKOCYTES-REFLEX 2+ (Negative); URINE NITRITE-REFLEX POSITIVE (Negative)
[2019-12-05 09:23] LABS: BACTERIA-REFLEX >30 Many /HPF (None Seen); CASTS None Seen /LPF (None Seen); CRYSTALS None Seen /LPF (None Seen); MUCUS 0-3 Light strn/LPF (None Seen); SQUAMOUS 0-3 Few /LPF (0-3); URINE RBC 3-10 Few /HPF (0-2)
[2019-12-05 14:24] VITALS: BP 164/66
--- NOTE | 2019-12-05 16:17 | 2DMMODE ---
[place] [address] 2 D/M-MODE ECHOCARDIOGRAM Name: VIRI PANIAGUA Room: [address] IN R#: [id number] Admission: 12/05/19 Attend Phys: Julio Hyatt Discharge: Date of : 32 Date of Service: 12/05/19 1615 Report #: [id number] THIS REPORT FOR: cc: Ann-Marie Daily MD, Elizabeth MD Liston, Michael J. MD [facility] ~ APPROVED REPORT Study performed: 12/05/2019 14:02:56 EXAM: Comprehensive 2D, Doppler, and color-flow Echocardiogram Patient Location: In-Patient Room #: 105 Status: routine BSA: 1.92 HR: 63 bpm BP: 159/62 mmHg Rhythm: NSR Other Information Study Quality: Good Indications CVA/TIA Echo Enhancing Agent Indication: Rule out Shunt Agent(s) / Amount(s) Used: Agitated Saline 10 cc 2D Dimensions IVSd: 10.30 (7-11mm) LVOT Diam: 23.02 (18-24mm) LVDd: 58.80 mm PWd: 9.72 (7-11mm) Ascending Ao: 35.33 (22-36mm) LVDs: 35.22 (25-40mm) Aortic Root: 38.37 mm Volumes Left Atrial Volume (Systole) LA ESV Index: 25.90 mL/m2 Aortic Valve AoV Peak Coy.: 1.31 m/s AO Peak Gr.: 6.84 mmHg LVOT Max P.05 mmHg AO Mean Gr.: 3.47 mmHg LVOT Mean P.30 [place] [address] 2 D/M-MODE ECHOCARDIOGRAM Name: VIRI PANIAGUA Room: [address] IN .R.#: [id number] Admission: 12/05/19 Attend Phys: Julio Hyatt Discharge: Date of : 32 Date of Service: 12/05/19 1615 Report #: [id number] LVOT Max V: 0.87 m/s AO V2 VTI: 26.66 cm LVOT Mean V: 0.52 m/s GENOVEVA (VTI): 3.12 cm2 LVOT V1 VTI: 20.01 cm AI [place]: 2.95 m/s2 AI PHT: 435.83 ms Mitral Valve E/A Ratio: 0.50 MV Decel. Time: 182.33 ms MV E Max Coy.: 0.43 m/s MV PHT: 52.88 ms MVA (PHT): 4.16 cm2 TDI E/Lateral E': 3.91 E/Medial E': 10.75 Medial E' Coy.: 0.04 m/s Lateral E' Coy.: 0.11 m/s Pulmonary Valve PV Peak Coy.: 0.87 m/s PV Peak Gr.: 3.01 mmHg Left Ventricle The left ventricle is normal size. 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 There is normal left ventricular wall thickness. Left ventricular systolic function is normal. LVEF is 55-60%. Grade I - abnormal relaxation pattern. Right Ventricle The right ventricle is normal size. The right ventricular systolic function is normal. Atria The left atrium size is normal. The interatrial septum is intact with no evidence for an atrial septal defect. The right atrium size is normal. Aortic Valve The aortic valve is normal in structure. Moderate aortic regurgitation. There is no aortic valvular stenosis. Mitral Valve The mitral valve is normal in structure. Trace mitral regurgitation. No evidence of mitral valve stenosis. Tricuspid Valve The tricuspid valve is normal in structure[place] [address] 2 D/M-MODE ECHOCARDIOGRAM Name: VIRI PANIAGUA Room: [address] IN .R.#: [id number] Admission: 12/05/19 Attend Phys: Julio Hyatt Discharge: Date of : 34 Date of Service: 12/05/19 1615 Report #: [id number] regurgitation. Unable to assess PA pressure. Pulmonic Valve The pulmonary valve is normal in structure. Mild pulmonic regurgitation. Great Vessels The aortic root is normal in size. IVC is normal in size and collapses >50% with inspiration. Pericardium There is no pericardial effusion. <Conclusion> The left ventricle is normal size. There is normal left ventricular wall thickness. Left ventricular systolic function is normal. LVEF is 55-60%. Grade I - abnormal relaxation pattern. 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 The interatrial septum is intact with no evidence for an atrial septal defect. Moderate aortic regurgitation. Trace mitral regurgitation. Trace tricuspid regurgitation. Unable to assess PA pressure. Mild pulmonic regurgitation. IVC is normal in size and collapses >50% with inspiration. <ELECTRONICALLY SIGNED> By: Tate Powers MD, FACC 12/05/19 1615 14 14 Tate Powers MD, FACC /INF
--- NOTE | 2019-12-05 16:37 | EKG ---
[place] [address] ELECTROCARDIOGRAM REPORT Name: SIVAVIRI Sherman Room: [address] ADM IN M.R.#: [id number] Admission: 12/05/19 Attend Phys: Julio Hyatt Discharge: Date of : 32 Date of Service: 12/05/19 0740 Report #: [id number] THIS REPORT FOR: //name// [facility] ED Test Date: 2019-12-05 Test Time: 07:40:04 Pat Name: VIRI PANIAGUA Department: Room: [facility] Gender: M Insulating Machine Operator: TS : 1930 Requested By: Tye Osullivan Order Number: [id number] MD: Tate Powers Measurements Intervals [place] Rate: 62 P: -11 MN: 227 QRS: -66 QRSD: 144 T: -17 QT: 444 QTc: 451 Interpretive Statements Sinus rhythm Prolonged MN interval Nonspecific IVCD with LAD Left ventricular hypertrophy Anterior Q waves, possibly due to LVH Baseline wander in lead(s) V2 Compared to ECG 05/11/2019 00:48:38 First degree AV block now present Intraventricular conduction delay now present Left ventricular hypertrophy now present Q waves now present Electronically Signed On 12-05-2019 16:35:59 CDT by Tate Powers [email or web address] <ELECTRONICALLY SIGNED> By: Tate Powers MD, [facility] 12/05/19 1635 9 9 Tate Powers MD, [facility] /EPI
--- NOTE | 2019-12-05 16:57 | NUR ---
PT ADMITTED FROM ER. HISTORY AND ASSESSMENT COMPLETE. PT A/O X4 BUT FORGETFUL. PT IS SLEETMUTE WITH BILATERAL HEARING AIDES. ORIENTED TO ROOM, CALL LIGHT, AND REMOTE. BED ALARM ON FOR PT SAFETY.
[2019-12-05 20:00] VITALS: BP 152/64
[2019-12-05 23:49] VITALS: BP 150/45
[2019-12-06 02:07] LABS: GLYCOHEMOGLOBIN (HGB A1C) 5.1 % (4.8-5.6)
[2019-12-06 03:43] VITALS: BP 167/75
--- NOTE | 2019-12-06 05:28 | NUR ---
PT ALERT TO HIMSELF, FORGETFUL, CONFUSED AT TIMES AND TRIED TO GET OUT THE BED FOR SEVERAL TIMES. UP WITH WALKER AND GAITBELT, GAITS UNSTEADY. INCONTINENT OF URINE. PT DENIED PAIN. BED ALARMS ON. CALL LIGHT WITHIN REACH. PT EDUCATED ON FALL RISKS AND CALL LIGHT, BUT DIDNT SEEM TO UNDERSTAND. WILL CONTINUE TO MONITOR.
[2019-12-06 05:31] LABS: ABSOLUTE EOSINOPHILS 0.1 thou/uL (0.0-0.7); ABSOLUTE LYMPHOCYTES 0.5 thou/uL (0.8-5.3); ABSOLUTE MONOCYTES 0.6 thou/uL (0.0-1.2); ABSOLUTE NEUTROPHILS 5.9 thou/uL (1.6-8.1); BASOPHILS 0.2 %; EOSINOPHILS 1.3 %; HEMATOCRIT 38.9 % (42.0-52.0); HEMOGLOBIN 12.8 gm/dL (14.0-18.0); LYMPHOCYTES 7.3 %; MCH 28.7 pg (26.0-34.0); MCHC 32.9 g/dL (28.0-37.0); MCV 87.1 fL (80.0-100.0); MONOCYTES 8.6 %; MPV 9.2 fl. (7.2-11.1); NUCLEATED RBCS 0 /100WBC; PLATELET COUNT* 139 thou/uL (150-400); POLYS 82.6 %; RBC 4.47 mil/uL (4.50-6.00); RDW-CV 16.2 % (10.5-14.5); WBC 7.1 thou/uL (4.0-11.0)
[2019-12-06 05:42] LABS: CALCIUM 8.4 mg/dL (8.5-10.1); POTASSIUM 3.8 mmol/L (3.5-5.1)
[2019-12-06 05:56] LABS: CHOLESTEROL 118 mg/dL (<200); HDL CHOLESTEROL 48 mg/dL (>40); LDL CHOLESTEROL 58 mg/dL (<100); TC:HDL 2.5 Ratio (Not establshd); TRIGLYCERIDE 64 mg/dL (<150); VLDL 13 mg/dL (<40)
[2019-12-06 06:04] LABS: SERUM ASSESSMENT Clear
[2019-12-06 08:00] VITALS: BP 154/79
--- NOTE | 2019-12-06 11:02 | NUR ---
SPOKE TO AFTER SHE SPOKE TO PT ON PHONE. SHE STATES THAT PT IS NOT AT HIS BASELINE AND IS CONFUSED. DISCUSSED PT STATUS AND PLAN OF CARE
[2019-12-06 11:54] VITALS: BP 129/79
--- NOTE | 2019-12-06 15:13 | NUR ---
CM spoke with Pt's via phone. reports that Pt had been doing well over the past few weeks. Pt and spend their [place] in [place] and while there Pt had 2 brain surgeries in August. Pt went to rehab in [place], [place] and they returned home about 1.5 weeks ago, no home d/t covid. states that Pt was out working in the yard on Thursday, on Thursday Pt started complaining of feeling weak. That night, Pt didn't sleep well, woke up to Pt yelling, helped Pt to the restroom, then back to bed, then to the restroom again, during that, Pt had 2 falls. brought Pt to ED with concern that something may be going wrong with Pt's brain d/t the recent surgeries. Pt admitted with UTI and encephalopathy. states that she spoke with her earlier today and states that his mental status is off. tearful d/t not being able to be here with her , but thankful for his care. CM provide emotional support. is hopeful that Pt will be able to return home at dc. Pt has a pending covid test. Following for dc needs.
--- NOTE | 2019-12-06 16:23 | NUR ---
PT RESTING IN BED THROUGHOUT SHIFT. CALLS FOR ASSIST. BED ALARM ON. PT TOLERATING PO WELL. HOURLY ROUNDING PERFORMED WHEN PT NEEDS ASSIST TO MINIMIZE STAFF EXPOSURE TO POSSIBLE COVID 19. SPOKE TO FAMILY AND UPDATED ON PT STATUS.
[2019-12-06 16:59] VITALS: BP 156/50
[2019-12-06 20:15] VITALS: BP 154/66
[2019-12-06 22:10] VITALS: BP 152/74
[2019-12-07 01:30] VITALS: BP 166/65
[2019-12-07 04:00] VITALS: BP 142/66
--- NOTE | 2019-12-07 04:13 | NUR ---
ASSUMED CARE OF PT 12/06/19 AT APPROX 1915. PT A&OX4 WITH PERIODS OF CONFUSION, PT ON ROOM AIR, VSS, SR ON MONITOR. ASSESSMENTS AND HOURLY ROUNDINGS COMPLETE. PT SLEEPING WELL. NO C/O PAIN OR SIGNS OF DISCOMFORT THIS SHIFT. WILL CONTINUE TO MONITOR.
[2019-12-07 07:06] LABS: ABSOLUTE EOSINOPHILS 0.1 thou/uL (0.0-0.7); ABSOLUTE LYMPHOCYTES 0.4 thou/uL (0.8-5.3); ABSOLUTE MONOCYTES 0.7 thou/uL (0.0-1.2); ABSOLUTE NEUTROPHILS 4.7 thou/uL (1.6-8.1); BASOPHILS 0.4 %; EOSINOPHILS 1.5 %; HEMOGLOBIN 13.1 gm/dL (14.0-18.0); LYMPHOCYTES 7.5 %; MCH 29.1 pg (26.0-34.0); MCHC 33.7 g/dL (28.0-37.0); MCV 86.5 fL (80.0-100.0); MPV 8.8 fl. (7.2-11.1); NUCLEATED RBCS 0 /100WBC; PLATELET COUNT* 140 thou/uL (150-400); POLYS 78.6 %; RBC 4.51 mil/uL (4.50-6.00); RDW-CV 16.6 % (10.5-14.5); WBC 5.9 thou/uL (4.0-11.0)
[2019-12-07 07:21] LABS: ALBUMIN 2.9 g/dL (3.4-5.0); CALCIUM 8.2 mg/dL (8.5-10.1); MAGNESIUM 2.1 mg/dL (1.8-2.4); TOTAL BILIRUBIN 0.7 mg/dL (<0.1-1.0)
[2019-12-07 08:44] VITALS: BP 156/67
--- NOTE | 2019-12-07 11:24 | CON ---
[facility] [address] [place] [address] CONSULTATION Name: SIVAVIRI Sherman Room: [address] M.R.#: [id number] Admission: 12/05/19 Attend Phys: Darvin Spring Discharge: Date of : 34 Report #: [id number] THIS REPORT FOR: //name// cc: Ann-Marie Daily MD, Elizabeth MD ~ THIS REPORT FOR: //name// CC: Ann-Marie Hyatt DATE OF SERVICE: 12/06/2019 ATTENDING PHYSICIAN: Barron Acevedo MD REASON FOR EVALUATION: Complicated urinary tract infection, complicated by encephalopathy. HISTORY OF PRESENT ILLNESS: Chart reviewed, patient examined. This is an 88-year-old with fairly significant medical history, has known history of something a chronic lymphoma. He is on chemotherapy; the details are not noted in the chart. He is unable to give specifics. 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 There may be associated residual meningeal thickening. It is noted that he has been more encephalopathic. He has had a number of falls. Again, he is unable to give details of history. It is not clear if he has had any fevers. He denies any chills, shakes or sweats. He states he has not had any pulmonary-related complaints. He has had recent travel to [place], [place]. On evaluation, he was found to have some moderate pyuria. Inflammatory markers were particularly elevated. White count was normal. Imaging was notable. CT of the head did show a question of right posterior mastoid fluid. There is question of acute versus chronic mastoiditis. It is notable he has had a recent history of Enterococcus in his urine. Urine culture now with growth of Escherichia coli. He was started on piperacillin and tazobactam. ALLERGIES: None known. MEDICATIONS: Zosyn, azithromycin, diltiazem CD, atorvastatin, flecainide and tamsulosin. PAST MEDICAL HISTORY: As described above, history of large prostate, atrial fibrillation, multiple brain hemorrhages with bilateral craniotomies, history of lymphoma and some mild encephalopathy. SOCIAL HISTORY: Nonsmoker. Occasional ethanol. No illicit drug use. FAMILY HISTORY: [place] [address] CONSULTATION Name: PANIAGUAVIRI Sherman Room: [address]#: [id number] Admission: 12/05/19 Attend Phys: Darvin Spring Discharge: Date of : 34 Report #: [id number] REVIEW OF SYSTEMS: Somewhat unreliably obtained. The patient is unable to give coherent answers. PHYSICAL EXAMINATION: GENERAL: He appears somewhat chronically ill. He is pleasant. He is cooperative. Speech is somewhat difficult to understand. He states his throat is dry. HEENT: Normocephalic. Extraocular muscles intact. NECK: Supple. LUNGS: Diminished breath sounds. I do not hear any wheezes. HEART: Regular. No apparent murmur. ABDOMEN: Soft, nontender, nondistended. EXTREMITIES: No cyanosis. GENITOURINARY: Deferred. RECTAL: Deferred. LABORATORY DATA: Initial CBC, white count of 7.3, H and H 12.0 and 36.9, platelets of 149, does have a lymphocytopenia of 500. Electrolytes, sodium 142, potassium 4.1, chloride 106, bicarbonate is 32, anion gap of 4, BUN and creatinine 15 and 1.1, glucose of 106. LFTs unremarkable. Albumin 3.2, total protein of 5.7. Troponin serial less than 0.06. Lactic acid 0.9, 1.1. CRP elevated at 20.3. Urinalysis did show moderate to marked pyuria, 16-25 white cells, greater than 30 bacteria. Urine culture with Escherichia coli. Chest x-ray, some chronic changes, there are some basilar changes that suggest atelectasis versus early infiltrate. Blood cultures sterile thus far. ASSESSMENT AND PLAN: Complicated urinary tract infection. The patient has known history of recurrent similar type issues. I think initially would certainly treat as a likely cause contributing to the encephalopathy, for him he said falls that may have been an issue for quite some time. We will await susceptibilities. I think it is reasonable to discontinue azithromycin, worried about drug-drug interactions. We will see how he does clinically. It is notable he is being ruled out for COVID-19 infection as well, that results should be back hopefully later today. We will follow. <ELECTRONICALLY SIGNED> By: Jesus Mehta MD 12/07/19 1124 [id number] [id number] Mehta MD /nt
--- NOTE | 2019-12-07 14:04 | NUR ---
Per , pt doing much better today. Covid pending. Possible dc to home tomorrow. Following.
--- NOTE | 2019-12-07 16:18 | NUR ---
I ASSUMED CARE OF THE PATIENT AT 0700. HE IS ALERT AND ORIENTED X4 AND IS UP WITH ASSIST OF ONE AND A WALKER. BED IS IN THE LOW LOCKED POSITION AND CALL LIGHT IS IN REACH. HOURLY ROUNDING WAS COMPLETED AND PATIENT NEEDS ARE MET. PAIN IS DENIED. BED AND CHAIR ALARMS ARE IN USE. PATIENT WAS BATHED AND LINENS CHANGED. HE NEEDS MEAL SETUP. PATIENT NEEDS TO BE ENCOURAGED TO SLOW DOWN WHEN MOVING, HE JUST GETS IN A HURRY AND BECOMES CARELESS. WAS CONTACTED OF COVID RESULTS AND ROOM TRANSFER. SHE WILL BRING CLOTHES IN THE AM. PATIENT HAS HIS HEARING AID CURTAIN CUTTER AT THE BEDSIDE. REPORT CALLED TO KYLE AND PATIENT TAKEN TO [facility] AT 1600.
[2019-12-07 16:30] VITALS: BP 150/62
--- NOTE | 2019-12-07 18:37 | NUR ---
PT TRANSFERRED FROM [facility]. AOX4 ON RA. VSS SEE CHART. FALL PRECAUTION IN PLACE
[2019-12-07 19:15] VITALS: BP 144/61
--- NOTE | 2019-12-07 22:41 | NUR ---
RECEIVED REPORT AND ASSUMED CARE OF PATIENT AT 1900. VSS. FULL ASSESSMENT COMPLETED CHARTED. BED IN LOW POSITION AND LOCKED. CALL LIGHT AND PERSONAL ITEMS IN REACH. BED ALARM ON. ALL NEEDS MET.
[2019-12-08] VITALS (7 sets, daily range): BP systolic 128–166; BP diastolic 52–68
[2019-12-08 06:15] LABS: CALCIUM 8.1 mg/dL (8.5-10.1); CREATININE 1.2 mg/dL (0.6-1.3); POTASSIUM 3.8 mmol/L (3.5-5.1)
--- NOTE | 2019-12-08 06:34 | NUR ---
NO ACUTE CHANGES. VSS THROUGHOUT SHIFT. ALL ROUNDINGS COMPLETED, ALL NEEDS MET. PT DENIES PAIN THROUGHOUT SHIFT. CALL LIGHT AND PERSONAL ITEMS IN REACH.
--- NOTE | 2019-12-08 14:41 | NUR ---
Per , Pt has UTI. Plan CT of lumbar. Covid negative. Acute rehab consult placed. Following.
--- NOTE | 2019-12-08 16:41 | NUR ---
ASSUMED PT CARE AT 0730, PT SITTING UP IN CHAIR, SATTING 95% ON RA, TRACING SR W/ A 1D AND BBB ON THE SPINNING SUPERVISOR AND HAD NO C/O PAIN OR SHORTNESS OF BREATH. PT WORKED W/ PT TODAY TO WORK ON GAIT, THEY DID NOT CLEAR PT TO DC R/T WEAK GAIT AND HX OF FALLS, INSTEAD ENCOURAGED PT TO MOVE TO REHAB TO INCREASE STRENGTH BEFORE DC TO HOME W/ . PT IS ANXIOUS TO GO HOME, ENCOURAGED REHAB TO PT, PT REFUSES REHAB AND WOULD PREFER TO DO OUT PT. REHAB INSTEAD. CT AND MRI OF SPINE BOTH DONE TODAY, SEE RESULTS. PT IS ALSO STILL AWAITING SENSITIVITIES FROM URINE CULTURE TO COME BACK BEFORE BEING ABLE TO DC. PT GOAL IS TO CONTINUE TO WORK TOWARDS DC AND ALSO REMAIN FREE FROM FALLS AND INCREASE ACTIVITY. AM ASSESSMENT CHARTED, MEDS PER MAR, HOURLY ROUNDING OBSERVED, CHAIR ALARM ON, CALL LIGHT W/IN REACH, WILL CONTINUE POC.
[2019-12-08] MEDS ORDERED: AUGMENTIN 500-1 EACH PO (17:38)
--- NOTE | 2019-12-08 18:26 | NUR ---
NO ACUTE CHANGES THROUGHOUT SHIFT, PT CONTINUES TO TRACE SR W/ A 1D AND BBB ON THE HEARING AID ASSISTANT AND SAT MID 90'S ON RA. PT GOT UP W/ NURSE ASSISTANCE AND WALKER MULTIPLE TIMES TO GO TO THE BATHROOM TODAY AND REMAINED FREE FROM FALLS. MEDS PER SEP, HOURLY ROUNDING OBSERVED, BED IN LOW POSITION, BED ALARM ON, CALL LIGHT W/IN REACH, WILL CONTINUE POC.
[2019-12-09 04:00] VITALS: BP 141/53
--- NOTE | 2019-12-09 06:25 | NUR ---
RECEIVED REPORT AND ASSUMED CARE OF PATIENT AT 1900. VSS. PT CONFUSED AND DISORIENTED TO PLACE AND SITUATION AROUND 0400. ALL ROUNDINGS COMPLETED ALL NEEDS MET. CALL LIGHT AND PERSONAL ITEMS IN REACH.
[2019-12-09 08:00] VITALS: BP 157/70
--- NOTE | 2019-12-09 09:24 | NUR ---
Left VM for Pt's , Pt wants to return home at dc, does not want to go to acute rehab. CM to discuss with Pt's , await call back.
--- NOTE | 2019-12-09 11:51 | NUR ---
ASSUMED PT CARE AT 0730, PT RESTING IN BED, SATTING 95% ON RA, TRACING SR W/ A 1D AND BBB ON THE SUPERVISOR DOCK AND HAD NO C/O PAIN OR SHORTNESS OF BREATH. PT SAW DR ESPINO TODAY AND VERBALIZED GOAL TO DC TODAY. WANTS PT TO WORK W/ PT FIRST TO DETERMINE READINESS TO DC AND TO COMMUNICATE RESULTS W/ PT'S SON, WHO IS A UROLOGIST AT . I CONVEYED THIS MESSAGE TO PT AND HE IS ANXIOUS TO DC BUT UNDERSTANDS THE PLAN TODAY BEFORE HE CAN DC. PT GOAL IS TO REMAIN FREE FROM FALLS AND WORK W/ PT. AM ASSESSMENT CHARTED, MEDS PER MAR, HOURLY ROUNDING OBSERVED, BED IN LOW POSITION, BED ALARM ON, CALL LIGHT W/IN REACH, WILL CONTINUE POC.
[2019-12-09 12:00] VITALS: BP 142/61
[2019-12-09 12:07] VITALS: BP 128/52
--- NOTE | 2019-12-09 12:09 | NUR ---
Pt discharging to home today with HH. HH referral faxed to [facility], to provide dc transportation
--- NOTE | 2019-12-09 13:51 | NUR ---
DC ORDERS RECEIVED. DC INSTRUCTIONS, CARE NOTES, F/U APPTS AND SCRIPTS GIVEN TO PT. PT COMMUNICATES UNDERSTANDING OF DC TEACHING. IV AND GLOBAL MARKETING OPERATIONS MANAGER REMOVED. PT DC W/ ALL BELONGINGS AND PAPERWORK VIA WC W/ NURSING STAFF TO 'S OWN PERSONAL VEHICLE. PT DC'D TO HOME W/ HOME HEALTH
== END 2019-12-09 13:30 | disposition home health service (06) | DRG 689 ==
LOC: M.ERS 07:05 → M.ORTHSURG 09:42 → M.TBA-ER 09:42 → M.ORTHSURG 14:59 → M.2W 12-07 16:05
PROVIDERS: Emergency Medicine Emergency Medical Services; ADMIT Internal Medicine
DX: N39.0 Urinary tract infection, site not specified (principal); G93.41 Metabolic encephalopathy; E44.0 Moderate protein-calorie malnutrition; C85.90 Non-Hodgkin lymphoma, unspecified, unspecified site; Z16.39 Resistance to other specified antimicrobial drug; M48.061 Spinal stenosis, lumbar region without neurogenic claudication; G47.00 Insomnia, unspecified; E03.9 Hypothyroidism, unspecified; B96.20 Unspecified Escherichia coli [E. coli] as the cause of diseases classified elsewhere; M54.9 Dorsalgia, unspecified; R20.2 Paresthesia of skin; N40.0 Benign prostatic hyperplasia without lower urinary tract symptoms; I48.91 Unspecified atrial fibrillation; Z68.20 Body mass index [BMI] 20.0-20.9, adult; Z85.828 Personal history of other malignant neoplasm of skin; Z87.891 Personal history of nicotine dependence; Z79.899 Other long term (current) drug therapy; Z92.21 Personal history of antineoplastic chemotherapy; R29.6 Repeated falls; Z03.818 Encounter for observation for suspected exposure to other biological agents ruled out

== ENCOUNTER 2020-01-11 11:44 | Emergency (ER) | payer OTHER ==
[~2020-01-11] VITALS: Ht 177.8 cm; Wt 76.2 kg
[~2020-01-11 11:44] MED LIST changes: +AUGMENTIN 500-1 EACH PO; +FLECAINIDE ACE150 MG PO
[2020-01-11 12:03] LABS: HEMOGLOBIN 14.3 gm/dL (14.0-18.0); NUCLEATED RBCS 0 /100WBC; RDW-CV 17.4 % (10.5-14.5); WBC 5.9 thou/uL (4.0-11.0)
[2020-01-11 12:05] LABS: HEMATOCRIT 42.9 % (42.0-52.0); MCH 29.2 pg (26.0-34.0); MCHC 33.3 g/dL (28.0-37.0); MCV 87.7 fL (80.0-100.0); MPV 9.1 fl. (7.2-11.1); PLATELET COUNT* 156 thou/uL (150-400); RBC 4.89 mil/uL (4.50-6.00)
[2020-01-11 12:11] LABS: CALCIUM 8.5 mg/dL (8.5-10.1); CREATININE 1.1 mg/dL (0.6-1.3)
[2020-01-11 12:16] LABS: ALBUMIN 3.5 g/dL (3.4-5.0); TOTAL BILIRUBIN 0.5 mg/dL (<0.1-1.0); TOTAL PROTEIN 6.6 g/dL (6.4-8.2)
[2020-01-11 12:32] LABS: APTT 27.5 Seconds (25.0-31.3); INR 1.1; PROTIME 11.3 Seconds (9.20-11.50)
[2020-01-11 12:40] LABS: ABSOLUTE BASOPHILS 0.1 thou/uL (0.0-0.2); ABSOLUTE EOSINOPHILS 0.6 thou/uL (0.0-0.7); ABSOLUTE LYMPHOCYTES 1.3 thou/uL (0.8-5.3); ABSOLUTE MONOCYTES 0.2 thou/uL (0.0-1.2); ABSOLUTE NEUTROPHILS 3.7 thou/uL (1.6-8.1)
[2020-01-11 12:42] LABS: PLATELET ESTIMATE ADEQUATE
[2020-01-11 13:30] VITALS: BP 147/69
--- NOTE | 2020-01-11 16:34 | EKG ---
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: [facility] : 1930 Requested By: Arie Centeno Order Number: [id number] MD: Mikhail Haytt Measurements Intervals [place] Rate: 80 P: -16 WA: 191 QRS: -68 QRSD: 132 T: 5 QT: 415 QTc: 479 Interpretive Statements Sinus rhythm LAFB poor r wave progression Baseline wander in lead(s) II,III,aVF,V2 Compared to ECG 12/05/2019 07:40:04 First degree AV block no longer present Electronically Signed On 01-11-2020 16:33:35 CDT by Mikhail Hyatt [email or web address] <ELECTRONICALLY SIGNED> By: Mikhail Hyatt MD, FAC 01/11/20 1633 1152 1152 Mikhail Hyatt MD, FAC /EPI
== END 2020-01-11 13:30 | disposition home or self-care (01) ==
LOC: M.ERS 11:44
PROVIDERS: Family Medicine
DX: G45.9 Transient cerebral ischemic attack, unspecified (principal); I48.91 Unspecified atrial fibrillation; G47.00 Insomnia, unspecified; Z85.828 Personal history of other malignant neoplasm of skin; Z79.899 Other long term (current) drug therapy

== ENCOUNTER 2020-05-03 13:31 | Emergency (ER) | payer OTHER ==
[~2020-05-03] VITALS: Ht 175.3 cm; Wt 78.5 kg
[2020-05-03 13:49] VITALS: BP 140/60
[2020-05-03 14:54] LABS: URINE BILIRUBIN NEGATIVE (Negative); URINE BLOOD TRACE (Negative); URINE CLARITY CLEAR; URINE COLOR YELLOW; URINE GLUCOSE-RANDOM NEGATIVE (Negative); URINE KETONES NEGATIVE (Negative); URINE LEUKOCYTES-REFLEX NEGATIVE (Negative); URINE NITRITE-REFLEX NEGATIVE (Negative); URINE PROTEIN TRACE (Negative); URINE SPECIFIC GRAVITY >= 1.030 (1.005-1.030); URINE UROBILINOGEN 0.2 E.U./dl (0.2-1.0)
[2020-05-03 15:16] LABS: HEMATOCRIT 37.3 % (42.0-52.0); HEMOGLOBIN 12.2 gm/dL (14.0-18.0); MCH 28.1 pg (26.0-34.0); MCHC 32.7 g/dL (28.0-37.0); MPV 9.1 fl. (7.2-11.1); NUCLEATED RBCS 0 /100WBC; PLATELET COUNT* 241 thou/uL (150-400); RBC 4.33 mil/uL (4.50-6.00); RDW-CV 15.7 % (10.5-14.5); WBC 6.3 thou/uL (4.0-11.0)
[2020-05-03 15:29] LABS: CALCIUM 8.4 mg/dL (8.5-10.1); POTASSIUM 4.5 mmol/L (3.5-5.1)
[2020-05-03 15:34] LABS: ALBUMIN 2.7 g/dL (3.4-5.0); TOTAL BILIRUBIN 0.3 mg/dL (<0.1-1.0); TOTAL PROTEIN 6.4 g/dL (6.4-8.2)
[2020-05-03 15:45] LABS: ABSOLUTE BASOPHILS 0.1 thou/uL (0.0-0.2); ABSOLUTE EOSINOPHILS 0.1 thou/uL (0.0-0.7); ABSOLUTE LYMPHOCYTES 0.6 thou/uL (0.8-5.3); ABSOLUTE MONOCYTES 0.4 thou/uL (0.0-1.2); ABSOLUTE NEUTROPHILS 5.2 thou/uL (1.6-8.1); METAMYELOCYTES 3 %
[2020-05-03 15:46] LABS: HYPOCHROMASIA 2+; LARGE PLATELETS FEW; PLATELET ESTIMATE ADEQUATE
--- NOTE | 2020-05-03 16:28 | EKG ---
[place] [address] ELECTROCARDIOGRAM REPORT Name: SIVAVIRI Sherman Room: [place] [address] ADM IN .R.#: [id number] Admission: 05/03/20 Attend Phys: Uriah Lawler, Discharge: Date of : 34 Date of Service: 05/03/20 1453 Report #: [id number] THIS REPORT FOR: //name// [facility] ED Test Date: 2020-05-03 Test Time: 14:53:41 Pat Name: VIRI PANIAGUA Department: Room: [facility] Gender: M [employer] Floor Walker: IBETH : 1930 Requested By: Tye Osullivan Order Number: [id number] MD: Mikhail Hyatt Measurements Intervals [place] Rate: 55 P: -43 MS: 232 QRS: -60 QRSD: 159 T: -10 QT: 503 QTc: 482 Interpretive Statements Sinus bradycardia Prolonged MS interval left anterior fasicular block Baseline wander in lead(s) V2,V3 Compared to ECG 01/11/2020 11:52:37 First degree AV block now present rate has slowed Electronically Signed On 05-03-2020 16:28:53 CDT by Mikhail Hyatt [email or web address] <ELECTRONICALLY SIGNED> By: Mikhail Hyatt MD, FACOrion 05/03/20 1628 1453 1453 Mikhail Hyatt MD, [facility] /EPI
[2020-05-03 18:45] VITALS: BP 141/49
== END 2020-05-03 18:49 | disposition still patient (30) ==
LOC: M.ERS 13:31 → M.TBA-ER 16:04 → M.ERS 16:04
PROVIDERS: Emergency Medicine Emergency Medical Services
DX: N19 Unspecified kidney failure (principal); Z20.828 Contact with and (suspected) exposure to other viral communicable diseases; I48.91 Unspecified atrial fibrillation; Z79.899 Other long term (current) drug therapy; Z87.891 Personal history of nicotine dependence